=== PATIENT | male | born 1955 | race Caucasian/White ===

== ENCOUNTER 2023-11-09 06:00 | Day surgery (SDC) | payer OTHER, SELFPAY ==
[2023-11-03 07:36] LABS: % Basophils 0.7 % (0-2); % Eosinophils 3.1 % (0-6); % Immature Granulocytes 0.2 % (0-0.5); % Lymphocytes 27.6 % (20.5-51.1); % Monocytes 9.4 % (1.7-9.3); Absolute Eosinophils 0.1 10^3/uL (0-0.7); Absolute Lymphocytes 1.2 10^3/uL (1.2-3.4); Absolute Monocytes 0.4 10^3/uL (0.1-0.6); Absolute Neutrophils 2.6 10^3/uL (1.4-6.5); Hematocrit 43.4 % (39.0-52.0); Hemoglobin 14.7 g/dL (13.0-18.0); Mean Corp Hgb Conc. 33.9 g/dL (33.0-37.0); Mean Corpuscular Hgb 30.1 pg (27.0-31.0); Mean Corpuscular Volume 88.8 fL (80.0-94.0); Mean Platelet Volume 9.9 fL (7.4-10.4); Nucleated Red Blood Cells % 0 % (-); Platelet Count 209 10^3/uL (130-400); Red Blood Cell Count 4.89 10^6/uL (4.70-6.10); Red Cell Dist. Width 13.2 % (11.5-14.5); White Blood Cell Count 4.5 10^3/uL (4.8-10.8)
[2023-11-03 07:48] LABS: ALT (SGPT) 27 U/L (0-50); AST (SGOT) 26 U/L (17-59); Albumin 4.2 g/dl (3.5-5.0); Alkaline Phosphatase 47 U/L (38-126); Blood Urea Nitrogen 20 mg/dl (9-20); Calcium 9.1 mg/dl (8.4-10.2); Carbon Dioxide 29 mmol/L (22-30); Chloride 104 mmol/L (98-107); Glucose 121 mg/dl (70-99); Sodium 138 mmol/L (135-145); Total Bilirubin 0.8 mg/dl (0.2-1.3); Total Protein 6.7 g/dl (6.3-8.2); eGFR > 60.00
[2023-11-09] VITALS (17 sets, daily range): BP systolic 111–143; BP diastolic 67–98; BMI 28.8
--- NOTE | 2023-11-09 09:43 | ITS.EPS ---
[employer] - EPS Report
EPS
Procedure Report:
Electrophysiology study:
Mr. Hall is a very pleasant 68 yr old gentleman with h/o recurrent TIA, PVCs and NSVT with fluctuating LVEF presented for electrophysiology (EP) study and if ventricular arrhythmia is inducible then possible ICD placement.
Date of the Procedure:
11/09/2023
Indications: CVA and Non-sustained Ventricular Tachycardia
Pre-Operative Diagnosis: Non-sustained Ventricular Tachycardia
Post-Operative Diagnosis: Non-sustained Ventricular Tachycardia
Procedure Performed: EP study
Performing physician:
Otilia Morrison MD
Anesthesia:
See anesthesia records
Detailed Description of the Procedure:
Written informed consent was obtained from the patient after a full explanation of the risks and benefits of the procedure including the risks of sedation and anesthesia.
The patient was brought to the electrophysiology laboratory in stable condition in fasting state. Continuous electrocardiographic and hemodynamic monitoring was initiated. The initial rhythm was normal sinus.
The procedure site was meticulously prepared with surgical scrub and allowed to dry with no pooling. Sterile draping was applied to cover the procedure site. The image intensifier was draped with sterile bag and positioned over the patient.
After infusion of local anesthetic, vascular access was obtained under ultrasound guidance and sheaths were placed over guide wire as detailed below.
Sheaths:
��������� 7Fr sheath in right femoral vein
��������� 6Fr sheath in right femoral vein
��������� 6Fr sheath in right femoral vein
��������� 6Fr sheath in right femoral vein
Catheters:
��������� 6Fr - Giancarlo Quad-cath at RVa
��������� 6Fr -Giancarlo-cath at HRA
��������� 6Fr �QRD for HIS location
��������� Decapolar Bard catheter - at locations of CS
Baseline intervals (milliseconds):
PP interval (baseline cycle length): 788
P wave duration: 110
FL interval: 118
QRS duration:136
����������� (RBBB and LAFB)
QT interval: 454
P onset to AVJ: 42
AH interval: 98
His duration: 12
HV interval: 44
Q onset to RVa: 0
Sinus Node Function:
Burst pacing was performed from the right atrium to measure the sinus node recovery time (SNRT) and corrected sinus node recovery time (cSNRT). The sinus node functions are within acceptable normal range.
Atrioventricular Rahul Function:
Atrial stimulation with incremental pacing intervals was performed from the high right atrium (HRA) and right ventricular apex (RVa) and antegrade and retrograde atrioventricular (AV) block cycle lengths were determined. The antegrade AV Wenckebach
was noted at 580 msec.
Programmed atrial stimulation was performed with drive train of 600 msec followed by a single atrial extra-stimulus and the AV rahul and the atrial ERPs were determined. The AV rahul ERP was 320 msec and the atrial ERP was <600/240 msec.
There was normal decremental conduction noted through the AV node. The programmed stimuli showed no abrupt AH jump as an evidence of dual pathways or echo beats.
There were frequent PACs and non-sustained atrial tachycardia noted.
Ventricular stimulation showed concentric, midline and decremental retrograde conduction through the AV node and retrograde AV rahul ERP was 600/280 msec with drive train of 600 msec.
There was slow AV conduction noted at baseline that improved with stimulation. The AV rahul functions are deemed within normal range.
Ventricular Function:
Single ventricular extrastimuli were delivered following drive train of 600 msec and 400 msec the ventricular ERP was determined 220 msec. The ventricular electrical functions are within acceptable range.
Arrhythmia Induction:
Programmed stimulation including single, double and triple extrastimuli were delivered from the RVa. The burst pacing from the RVa was also attempted. The RVa was paced as per MUSTT protocol with no arrhythmia induced at drive train of 600 and then
at 400 msec with S1, S2, S3 and S4.
The catheter was moved to RVOT and the induction was again attempted with drive train of 600 msec and 400 msec with single, double and triple extrastimuli. There was no arrhythmia induced with aggressive induction maneuvers.
No sustained arrhythmia was inducible.
The EP study along with arrhythmia induction was repeated with programmed stimulation and the burst pacing was not able to induce any sustained arrhythmia.
The EP study during the washout phase was again attempted but no arrhythmia was noted.
Procedure End
Following the completion of the EP study, catheters were removed. The sheaths were removed and hemostasis achieved with manual compression.
Estimated Blood loss:
<5 cc
Specimens Removed:
None.
Implants / Devices:
None
Urine output:
None
Packs / Drains/ Tubes:
None
Instrument / Sponge Count Correct:
Yes
Complications of the Procedure:
None
Condition of Patient at Time of Transfer:
Hemodynamically stable with no neurological or vascular compromise.
Summary:
Normal electrophysiology study with Isuprel and no sustained ventricular arrhythmia noted.
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
--- NOTE | 2023-11-09 10:12 | ITS.CL.IMPLP ---
[facility] - Implant Loop
Implant Loop
Procedure Report:
Procedure: Insertion of Loop Recorder.�
Date of the procedure: 11/09/2023
Procedure Physician: Otilia Morrison MD [facility]
Indication: CVA
Description of the procedure:
Patient was brought to the holding area after informed consent was obtained from the patient. The time out was performed immediately before the procedure.
The left parasternal chest area was prepped and draped in sterile fashion with chlorhexidine prep x 3 times. Lidocaine 1% was injected subcutaneously for local anesthesia. The loop recorder was tunneled and then injected into the subcutaneous
tissue. The tunneling tool was removed leaving the loop recorder in place. The dermis was closed with 4-0 Monocryl suture. The skin was closed with steristrips and a pressure Tegaderm dressing was placed. There were no immediate complications.
Post procedure, the device was interrogated and showed good detectable P and R waves.
There were no immediate complications.
Device:
Core Competencet-IQ EL+; Model: [id number]; Serial #:[id number]
R wave amplitude: 0.57mV
Final Programming:
��������������� Tachycardia Detection: 145 bpm for 12 beats
�������������� Bradycardia Detection: 30 bpm for 4 beats, Asystole for 5 seconds
�������������� Atrial fibrillation detection: On
��������������� � Continuous burden: 6 min and daily burden 6 hours, AF alert 2 min
������������������������������� Detection qualifier: On (sudden onset; onset Delta 18%)
������������������������������� Bigeminy Qualifier: On
Conclusion:
Successful insertion of loop recorder.
Recommendation:
Routine post-insertable loop care.
--- NOTE | 2023-11-09 10:23 | PTCARENOTE ---
Johnny Ivan, [facility], at pt bedside speaking to pt and pt's .
[2023-11-09] MEDS: TYLENOL 650 MG PO (10:45)
== END 2023-11-09 14:00 | disposition home or self-care (01) ==
LOC: CATH 06:00
PROVIDERS: ATTENDING PHYSICIAN Internal Medicine Cardiovascular Disease; FAMILY PHYSICIAN Internal Medicine
DX: Z09 Encounter for follow-up examination after completed treatment for conditions other than malignant neoplasm (principal); I47.20 Ventricular tachycardia, unspecified; Z86.73 Personal history of transient ischemic attack (TIA), and cerebral infarction without residual deficits; I10 Essential (primary) hypertension
CPT/HCPCS: 33285; 93620; C1730; C1894; 36415; 76937; 80053; 85025; 86850; 86900; 86901; 93005; 93623; C1764

== ENCOUNTER 2024-01-10 11:50 | Emergency (ER) | payer OTHER, SELFPAY ==
[2024-01-10] VITALS (8 sets, daily range): BP systolic 105–123; BP diastolic 59–97; BMI 27.5
[2024-01-10 12:24] LABS: Hematocrit 46.4 % (39.0-52.0); Mean Corp Hgb Conc. 34.5 g/dL (33.0-37.0); Mean Corpuscular Hgb 29.7 pg (27.0-31.0); Mean Corpuscular Volume 86.2 fL (80.0-94.0); Mean Platelet Volume 10.4 fL (7.4-10.4); Nucleated Red Blood Cells % 0 % (-); Platelet Count 150 10^3/uL (130-400); Red Blood Cell Count 5.38 10^6/uL (4.70-6.10); Red Cell Dist. Width 13.7 % (11.5-14.5); White Blood Cell Count 3.4 10^3/uL (4.8-10.8)
[2024-01-10 12:37] LABS: COVID-19 Antigen Negative (Negative)
[2024-01-10 12:38] LABS: INR 1.11; PT 14.4 Sec (11.4-14.6)
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
[2024-01-10 12:47] LABS: ALT (SGPT) 40 U/L (0-50); AST (SGOT) 36 U/L (17-59); Albumin 4.3 g/dl (3.5-5.0); Alkaline Phosphatase 53 U/L (38-126); Blood Urea Nitrogen 18 mg/dl (9-20); Calcium 8.8 mg/dl (8.4-10.2); Carbon Dioxide 22 mmol/L (22-30); Chloride 101 mmol/L (98-107); Estimated Creatinine Clearance 99 ml/min; Glucose 102 mg/dl (70-99); Potassium 3.3 mmol/L (3.5-5.1); Sodium 134 mmol/L (135-145); Total Bilirubin 0.6 mg/dl (0.2-1.3); Total Protein 6.8 g/dl (6.3-8.2); eGFR > 60.00
[2024-01-10 12:54] LABS: Troponin I < 0.012 ng/ml
[2024-01-10] MEDS: NSS 1000 IV (13:09)
[2024-01-10 13:15] LABS: Absolute Neutrophils -Man Diff 1.5 10^3/uL (1.4-6.5); Band Neutrophils 0 % (0-3)
[2024-01-10 13:16] LABS: Eosinophils 1 % (0-6); Lymphocytes 32 % (20-51); Monocytes 20 % (2-9); Segmented Neutrophils 47 % (42-75)
[2024-01-10 13:18] LABS: Anisocytosis Slight; Normal RBC Morphology No; Ovalocytes Slight; Platelets Checked Yes; Total Cells Counted 100
[2024-01-10] MEDS: SOLU-MEDROL PF 40 MG IV (14:02)
[2024-01-10 15:29] LABS: Troponin I 0.012 ng/ml
== END 2024-01-10 16:27 | disposition home or self-care (01) ==
LOC: EMR 11:50
PROVIDERS: Emergency Medicine; Physician Assistant; EMERGENCY PHYSICIAN Emergency Medicine
DX: R07.89 Other chest pain (principal); I48.0 Paroxysmal atrial fibrillation; I10 Essential (primary) hypertension; I25.10 Atherosclerotic heart disease of native coronary artery without angina pectoris; E78.00 Pure hypercholesterolemia, unspecified; G47.33 Obstructive sleep apnea (adult) (pediatric)
CPT/HCPCS: 99283; 96374; 96361; 71046; 80053; 84484; 85025; 85610; 87502; 87811; 93005

== ENCOUNTER 2024-02-26 07:39 | Inpatient (IN) | payer OTHER, SELFPAY ==
--- NOTE | 2024-02-26 08:16 | W.PN.CD ---
Addendum entered and electronically signed by Otilia Morrison MD 02/27/24 07:52:
Patient is seen and evaluated personally. I agree with the note, plan of care, physical examination and documentation as noted below.
Briefly, 68-year-old gentleman with hypertension, conduction disease, sleep apnea, paroxysmal atrial fibrillation, who has baseline QTc of 430 ms corrected for conduction disease. He was on hydrochlorothiazide which was discontinued with hope to
start Tikosyn. There is no other contraindications. Will start loading him with Tikosyn. Initially proposed doses 5 mg twice a day for
Original Note:
Today's Communication / Plan
-
Obtain baseline EKG and BMP
Dofetilide loading per protocol
Impression / Plan
-
THIS IS THE SUMMARY - SEE SCANNED H&P
BACKGROUND: 68M with prior CVA/TIAs, PVCs, hypertension, bifascicular block, and JAZMINE (uses dental appliance) presents for dofetilide loading. He had an EP study 10/20/2023 which showed normal electrophysiology with Isopril and no sustained
ventricular arrhythmia. He underwent insertion of a loop recorder on that same day. Since then, he is been seen to have periods of atrial fibrillation. He is having recurrent episodes of atrial fibrillation. Heart rates are 170/190 bpm with
associated chronic fatigue, lethargy, and SMALLS.
Paroxysmal atrial fibrillation
-Obtain baseline EKG and BMP
-Dofetilide loading per protocol, this requires intensive monitoring of QTc
-Oral Anticoagulation: Apixaban 5 mg twice daily, he denies missed doses and abnormal bleeding
-[id number]: Score at least 4 (HTN, prior Stroke/TIA, age 65-74)
Bifascicular block
Hypertension, chronic, stable, follow
PVCs
JAZMINE, continue dental appliance
Subjective:
Denies CP, shortness of breath, and dizziness.
Physical Exam
Physical Exam
Constitutional: No acute distress and Comfortable
EENT: Anicteric and Moist mucous membranes
Cardiovascular: Rhythm & rate is regular and Pedal edema is absent
Respiratory: Respiratory effort normal and Lungs clear to auscul.
GI: Soft, Distention absent, Flat, Non tender and Normal bowel sounds
Neuro/Psych: AO x 3
Other: Skin (warm and dry)
Data Reviewed
-
Date of Service: February 26, 2024
Medical Decision Making: Tests Ordered
Labs: Labs Reviewed by me
Old Records: Reviewed
[2024-02-26 09:40] LABS: Blood Urea Nitrogen 19 mg/dl (9-20); Calcium 9.7 mg/dl (8.4-10.2); Carbon Dioxide 28 mmol/L (22-30); Chloride 105 mmol/L (98-107); Glucose 96 mg/dl (70-99); Potassium 4.1 mmol/L (3.5-5.1); Sodium 140 mmol/L (135-145); eGFR > 60.00
[2024-02-26 09:57] VITALS: BP 158/107
--- NOTE | 2024-02-26 10:02 | W.CARD.TIKOS ---
Initiate Tikosyn
-
I verify that the patient has not taken any verapamil (Isoptin/Calan), ketoconazole (Nizoral), cimetidine (Tagamet), trimethoprim (Trimpex), trimethoprim/sulfamethoxazole (Bactrim), megesterol (Megace), prochlorperazine (Compazine),
hydrochlorothiazide (HCTZ), dolutegravir (Tivicay) or any Class I or Class III anti-arrhythmic within the last three days
AND
I verify that the patient has not taken amiodarone within the last THREE months, or that the patient's amiodarone plasma concentration is <0.3 mcg/mL.
Creatinine 0.8 mg/dL (0.7-1.3) 02/26/24 09:18
I have assessed the baseline QTc interval (using QT for heart rate less than 60 bpm) and deemed the patient is appropriate for Dofetilide therapy. I understand that Tikosyn is contraindicated if the QTc is >440msec (500msec in patients with
ventricular conduction abnormalities).
Baseline QTc (in msec): 420
Ordering Physician: Otilia Morrison
[2024-02-26] MEDS: TIKOSYN 500 MCG PO ×2 (10:28→20:59)
[2024-02-26 11:33] VITALS: BP 153/96
--- NOTE | 2024-02-26 12:59 | CM ---
Chart reviewed. Patient is independent of ADLS, lives with his rhoda [address], 3 [address]UPAMA, 0 DME. Plan is for the patient to return home. CM to follow
--- NOTE | 2024-02-26 15:44 | CM ---
Chart reviewed. Patient is independent of ADLS, lives with his in a 2.5 STH, 3 ANUPAMA, 0 DME. Plan is for the patient to return home. CM to follow
--- NOTE | 2024-02-26 15:46 | CM ---
Pricing on Dofetilide through the patient's [facility] is $5 a month retail, $ 10 a month 90 day mail order. I called patients [facility] and they do not have Dofetilide 500 mcq in stock. They can get next day. CM to follow dosage.
[2024-02-26 16:22] VITALS: BP 144/98
[2024-02-26 18:36] VITALS: BP 144/95
[2024-02-26 20:58] VITALS: BP 144/92
[2024-02-26] MEDS: ELIQUIS 5 MG PO (21:00)
[2024-02-26 23:03] VITALS: BP 136/94
[2024-02-27 04:46] VITALS: BP 138/85
--- NOTE | 2024-02-27 06:08 | PTCARENOTE ---
Patient received 2nd dose of Tikosyn. EKG obtained 2hrs post, and QTc showed a result of 502. Tele remains SR-Sinus alvin w/ RBBB and occasional PACs. Dr. Keller made aware about QTc level. This RN will pass along to day shift RN. Pt denies any
chest pain or chest discomfort. Patient had a brief run of tachy w/ HR in the 120s. Upon assessment pt states 'It felt like a poke' and pointed to his middle left back. Episode was brief, and pt back to baseline. Aware of POC, call elmore within
reach.
[2024-02-27 07:51] VITALS: BP 137/82
[2024-02-27] MEDS: COLACE 100 MG PO (08:40)
[2024-02-27] MEDS: FEOSOL 325 MG PO (08:41)
[2024-02-27] MEDS: TIKOSYN 250 MCG PO ×2 (08:41→20:05)
[2024-02-27] MEDS: ELIQUIS 5 MG PO ×2 (08:41→20:05)
[2024-02-27] MEDS: LIPITOR 10 MG PO (08:42)
[2024-02-27] MEDS: ZESTRIL 40 MG PO (08:42)
--- NOTE | 2024-02-27 11:00 | PTCARENOTE ---
Pt's QTc 2 hrs post Tikosyn dose is 561, Dr Morrison notified.
[2024-02-27 11:36] LABS: Blood Urea Nitrogen 20 mg/dl (9-20); Calcium 9.8 mg/dl (8.4-10.2); Carbon Dioxide 28 mmol/L (22-30); Chloride 104 mmol/L (98-107); Glucose 90 mg/dl (70-99); Potassium 4.2 mmol/L (3.5-5.1); Sodium 139 mmol/L (135-145); eGFR > 60.00
[2024-02-27 12:34] VITALS: BP 153/94
--- NOTE | 2024-02-27 14:37 | W.PN.CD ---
Today's Communication / Plan
-
- Continue loading Tikosyn
Impression / Plan
-
THIS IS THE SUMMARY - SEE SCANNED H&P
BACKGROUND: 68M with prior CVA/TIAs, PVCs, hypertension, bifascicular block, and JAZMINE (uses dental appliance) presents for dofetilide loading. He had an EP study 10/20/2023 which showed normal electrophysiology with Isopril and no sustained
ventricular arrhythmia. He underwent insertion of a loop recorder on that same day. Since then, he is been seen to have periods of atrial fibrillation. He is having recurrent episodes of atrial fibrillation. Heart rates are 170/190 bpm with
associated chronic fatigue, lethargy, and SMALLS.
Paroxysmal atrial fibrillation
-Obtain baseline EKG and BMP
-Overnight episode of AF noted.
-Dofetilide loading per protocol, this requires intensive monitoring of QTc
- QTc was prolonged after first dose and the dose was reduced to 250 mcg q12h.
- QTc was long this Am after the tikosyn dose but over the duration of the day, his QTc has imporved on the telemetry.
- Continue loading 250 mcg dose tonight.
- EKG in AM prior to the AM dose.
-Oral Anticoagulation: Apixaban 5 mg twice daily, he denies missed doses and abnormal bleeding
-[id number]: Score at least 4 (HTN, prior Stroke/TIA, age 65-74)
Bifascicular block
Hypertension, chronic, stable, follow
PVCs
JAZMINE, continue dental appliance
Subjective:
Denies CP, shortness of breath, and dizziness.
Physical Exam
Vital Signs/Labs
Vital Signs
Temp Pulse Resp BP Pulse Ox
98.9 F 68 18 137/82 96
02/27/24 12:35 02/27/24 09:00 02/27/24 12:35 02/27/24 07:51 02/27/24 12:35
02/26/24 02/27/24 02/28/24
06:59 06:59 06:59
Actual Weight 102.1 kg
02/27/24 10:28
Magnesium 2.0 mg/dl (1.6-2.3) 02/27/24 10:28
Physical Exam
Constitutional: No acute distress and Comfortable
EENT: Anicteric and Moist mucous membranes
Cardiovascular: Rhythm & rate is regular, Pedal edema is absent and JVD pressure is normal
Respiratory: Respiratory effort normal and Lungs clear to auscul.
Neuro/Psych: Alert, Oriented, AO x 3 and Motor deficits absent
Data Reviewed
-
Date of Service: February 27, 2024
Medical Decision Making: Reviewed Test Results and Test Interpretation
EKG: Tracing Personally Visualized and interpreted
Echo: Report Reviewed by me
Labs: Labs Reviewed by me
Old Records: Reviewed
[2024-02-27 15:49] VITALS: BP 154/94
[2024-02-27 20:04] VITALS: BP 141/87
[2024-02-27 22:12] VITALS: BP 138/83
--- NOTE | 2024-02-27 22:13 | PTCARENOTE ---
Pt rec'd at change of shift awake,alert ambulating in brothers. denies chest discomfort or sob. Pt requested ecg prior to fourth dose of Tikosyn. pt stated he discussed this with Dr Banuelos this afternoon. ecg pre showed QTc 458. 2 hrs post fourth dose
showed QTc of 456. both show sinus alvin rhythm.
[2024-02-28] VITALS (7 sets, daily range): BP systolic 127–145; BP diastolic 73–81
--- NOTE | 2024-02-28 04:08 | DOWNTIME ---
There was a [employer] Client Room Service Runner Downtime on 02/28/2024 from 0100 to 02/28/2024 at 0337. Downtime documentation of patient's care, including medication administrations, has been reconciled in the electronic record per guidelines. Refer to the
patient's paper chart under the miscellaneous tab to see printed paper medication records and downtime forms.
--- NOTE | 2024-02-28 07:52 | W.PN.CD ---
Today's Communication / Plan
-
- With frequent PVCs noted and the fluctuating QTc, will keep him till tomorrow.
- Anticipating discharge tomorrow
Impression / Plan
-
BACKGROUND: 68M with prior CVA/TIAs, PVCs, hypertension, bifascicular block, and JAZMINE (uses dental appliance) presents for dofetilide loading. He had an EP study 10/20/2023 which showed normal electrophysiology with Isopril and no sustained
ventricular arrhythmia. He underwent insertion of a loop recorder on that same day. Since then, he is been seen to have periods of atrial fibrillation. He is having recurrent episodes of atrial fibrillation. Heart rates are 170/190 bpm with
associated chronic fatigue, lethargy, and SMALLS.
Paroxysmal atrial fibrillation
-Obtain baseline EKG and BMP
-Overnight episode of AF noted.
-Dofetilide loading per protocol, this requires intensive monitoring of QTc
- QTc was prolonged after first dose and the dose was reduced to 250 mcg q12h.
- QTc has improved on the telemetry.
- Continue loading 250 mcg dose tonight.
-Oral Anticoagulation: Apixaban 5 mg twice daily, he denies missed doses and abnormal bleeding
-[id number]: Score at least 4 (HTN, prior Stroke/TIA, age 65-74)
Bifascicular block
Hypertension, chronic, stable, follow
PVCs
JAZMINE, continue dental appliance
Subjective:
Denies CP, shortness of breath, and dizziness.
Physical Exam
Vital Signs/Labs
Vital Signs
Temp Pulse Resp BP Pulse Ox
98.1 F 62 18 127/80 96
02/28/24 07:16 02/28/24 07:16 02/28/24 07:16 02/28/24 05:43 02/28/24 07:16
02/27/24 02/28/24 02/29/24
06:59 06:59 06:59
Actual Weight 102.1 kg
02/27/24 10:28
Magnesium 2.0 mg/dl (1.6-2.3) 02/27/24 10:28
Physical Exam
Constitutional: No acute distress and Comfortable
EENT: Anicteric and Moist mucous membranes
Cardiovascular: Rhythm & rate is regular, Pedal edema is absent and JVD pressure is normal
Respiratory: Respiratory effort normal and Lungs clear to auscul.
GI: Soft and Distention absent
Neuro/Psych: Alert, Oriented and AO x 3
Data Reviewed
-
Date of Service: February 28, 2024
Medical Decision Making: Reviewed Test Results, Independent Historian Assessment, Test Interpretation and Review of Case with other Provider
EKG: Tracing Personally Visualized and interpreted
Labs: Labs Reviewed by me
Old Records: Reviewed
[2024-02-28] MEDS: FEOSOL 325 MG PO (07:58)
[2024-02-28] MEDS: COLACE 100 MG PO (07:58)
[2024-02-28] MEDS: TIKOSYN 250 MCG PO ×2 (07:58→19:53)
[2024-02-28] MEDS: ELIQUIS 5 MG PO ×2 (07:59→19:53)
[2024-02-28] MEDS: LIPITOR 10 MG PO (07:59)
[2024-02-28] MEDS: ZESTRIL 40 MG PO (08:00)
--- NOTE | 2024-02-28 11:05 | PTCARENOTE ---
Received patient this AM, AAOx4. Monitor shows NSR with 1st degree AV block and BBC. VSS.
--- NOTE | 2024-02-28 22:54 | PTCARENOTE ---
Pt recevied start of shift, HR SR/SB w/ BBB. 6th dose of tikosyn administered - QTc 465.
[2024-02-29 04:22] VITALS: BP 122/77
[2024-02-29 07:14] VITALS: BP 129/78
[2024-02-29] MEDS: TIKOSYN 250 MCG PO (08:18)
[2024-02-29] MEDS: ZESTRIL 40 MG PO (08:19)
[2024-02-29] MEDS: FEOSOL 325 MG PO (08:19)
[2024-02-29] MEDS: ELIQUIS 5 MG PO (08:19)
[2024-02-29] MEDS: COLACE 100 MG PO (08:19)
[2024-02-29] MEDS: LIPITOR 10 MG PO (08:20)
--- NOTE | 2024-02-29 09:29 | W.DS.TRANS ---
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
-
Discharge Instructions:
Discharge Diagnosis/Procedures atrial fibrillation, dofetilide initiation
Diet Low Cholesterol,Low Sodium
Activity As tolerated
Driving Restrictions As prior to admission
Bathing Restrictions None
Instructions:
Stand-Alone Forms:
Changes to Home Medications: Yes
Discharge Medications:
DC Medications w/original date entered in [facility]
simvastatin 20 mg tablet 20 mg PO DAILY High cholesterol 07/17/19
rizatriptan 10 mg disintegrating tablet 10 mg PO DAILYPRN PRN MIRGRAINES 09/16/23
docusate sodium 100 mg capsule (Stool Softener) 100 mg PO DAILY Constipation #0 caps 09/17/23
lisinopril 40 mg tablet 40 mg PO DAILY Blood pressure #0 tabs 09/17/23
ferrous sulfate 325 mg (65 mg iron) tablet 325 mg PO DAILY Supplement 11/09/23
apixaban 5 mg tablet (Eliquis) 5 mg PO BID Blood Clot Prevention/Tx 02/26/24
dofetilide 250 mcg capsule 250 mcg PO Q12H #60 caps 02/29/24
Home Medication Changes
Dofetilide added
Pending Results: No
[2024-02-29 11:20] VITALS: BP 142/79
[2024-02-29 11:21] VITALS: BP 142/79
--- NOTE | 2024-02-29 11:33 | PTCARENOTE ---
Pt discharged w/ 3 day supply of Tikosyn.
--- NOTE | 2024-02-29 13:25 | W.PN.CD ---
Today's Communication / Plan
-
- QTC is acceptable
- OK for discharge with Tikosyn 250 mcg BID
Impression / Plan
-
BACKGROUND: 68M with prior CVA/TIAs, PVCs, hypertension, bifascicular block, and JAZMINE (uses dental appliance) presents for dofetilide loading. He had an EP study 10/20/2023 which showed normal electrophysiology with Isopril and no sustained
ventricular arrhythmia. He underwent insertion of a loop recorder on that same day. Since then, he is been seen to have periods of atrial fibrillation. He is having recurrent episodes of atrial fibrillation. Heart rates are 170/190 bpm with
associated chronic fatigue, lethargy, and SMALLS.
Paroxysmal atrial fibrillation
-Obtain baseline EKG and BMP
-Overnight episode of AF noted.
-Dofetilide loading per protocol, this requires intensive monitoring of QTc
- QTc was prolonged after first dose and the dose was reduced to 250 mcg q12h.
- QTc has improved on the telemetry.
- s/p Tikosyn 250 mcg BID - loaded.
-Oral Anticoagulation: Apixaban 5 mg twice daily, he denies missed doses and abnormal bleeding
-[id number]: Score at least 4 (HTN, prior Stroke/TIA, age 65-74)
Bifascicular block
Hypertension, chronic, stable, follow
PVCs
JAZMINE, continue dental appliance
Subjective:
Denies CP, shortness of breath, and dizziness.
Physical Exam
Vital Signs/Labs
Vital Signs
Temp Pulse Resp BP Pulse Ox
98.1 F 60 20 142/79 95
02/29/24 11:20 02/29/24 11:20 02/29/24 11:20 02/29/24 11:21 02/29/24 11:20
02/27/24 10:28
Magnesium 2.0 mg/dl (1.6-2.3) 06/18/24 10:28
Physical Exam
Constitutional: No acute distress and Comfortable
EENT: Anicteric and Moist mucous membranes
Cardiovascular: Rhythm & rate is regular, Pedal edema is absent and JVD pressure is normal
Respiratory: Respiratory effort normal, Lungs clear to auscul. and Crackles Absent
GI: Soft, Non tender and Normal bowel sounds
Neuro/Psych: Alert and AO x 3
Data Reviewed
-
Date of Service: February 29, 2024
Medical Decision Making: Reviewed Test Results, Independent Historian Assessment and Test Interpretation
EKG: Tracing Personally Visualized and interpreted
Echo: Report Reviewed by me
Labs: Labs Reviewed by me
Old Records: Reviewed
== END 2024-02-29 11:36 | disposition home or self-care (01) | DRG 310 ==
LOC: IVU 07:39
PROVIDERS: Nurse Practitioner Gerontology; ADMITTING PHYSICIAN Internal Medicine Cardiovascular Disease
DX: I48.0 Paroxysmal atrial fibrillation (principal); I45.2 Bifascicular block; I49.3 Ventricular premature depolarization; I10 Essential (primary) hypertension; E78.5 Hyperlipidemia, unspecified; G47.33 Obstructive sleep apnea (adult) (pediatric); Z79.01 Long term (current) use of anticoagulants; Z86.16 Personal history of COVID-19; Z82.49 Family history of ischemic heart disease and other diseases of the circulatory system; Z88.8 Allergy status to other drugs, medicaments and biological substances; Z86.73 Personal history of transient ischemic attack (TIA), and cerebral infarction without residual deficits; Z95.818 Presence of other cardiac implants and grafts; Z79.899 Other long term (current) drug therapy
CPT/HCPCS: 80048; 83735; 93005

== ENCOUNTER → 2024-03-15 09:16 | Outpatient (REF) | payer OTHER, SELFPAY | LOC: RCS 09:16 | PROVIDERS: ATTENDING PHYSICIAN Nurse Practitioner Gerontology | DX: R00.2 Palpitations (principal) | CPT/HCPCS: 93225; 93226 ==

== ENCOUNTER → 2024-04-12 07:20 | Outpatient (REF) | payer OTHER, SELFPAY | LOC: HWRCS 07:20 | PROVIDERS: ATTENDING PHYSICIAN Internal Medicine Cardiovascular Disease; FAMILY PHYSICIAN Internal Medicine | DX: R00.1 Bradycardia, unspecified (principal) | CPT/HCPCS: 93306 ==

== ENCOUNTER 2024-05-02 07:54 | Day surgery (SDC) | payer OTHER, SELFPAY ==
[2024-05-02] VITALS (25 sets, daily range): BP systolic 116–153; BP diastolic 78–107; BMI 28.4
--- NOTE | 2024-05-02 09:08 | PTCARENOTE ---
Pt's blood pressure is 147/102 on left arm and 153/[address] Partida made aware of pt's blood pressure. No treatment ordered at this time. Will continue to monitor.
--- NOTE | 2024-05-02 12:44 | ITS.CL.PACE ---
Assistant Chief Engineer - Pacemaker Implant
Pacemaker Implant
Procedure Report:
Conduction system pacing Permanent Pacemaker Placement:
Mr. Hall is a 68 years old man with severe bradycardia and pauses with PAF and tachybrady syndrome is recommended a dual chamber PPM placement.
Indications:
Tachy alvin syndrome with sinus pauses.
Date of the Procedure:
05/02/24
Pre-Operative Diagnosis: Tachy alvin syndrome with sinus pauses.
Post-Operative Diagnosis: Tachy alvin syndrome with sinus pauses.
Procedure Performed: Conduction system pacing permanent pacemaker
Performing Physician:
Otilia Morrison MD
Anesthesia:
See anesthesia report.
Detailed Description of the Procedure:
The patient was identified using hospital identification and informed consent obtained for the procedure. The risks were explained to the patient and the family including, but not limited to: Bleeding, infection, arrhythmia, stroke,
vascular/cardiac/lung puncture, surgery, pacemaker dependency/device malfunction. All questions were answered.
A surgical pause was performed in accordance with hospital regulations. Anesthesia service provided sedation as reported separately. Antibiotics administered IV for risk of bacterial colonization. After obtaining informed and written consent, the
patient was brought to the electrophysiology laboratory.
The initial rhythm was sinus with sinus rhythm.
The procedure site was meticulously prepared with surgical scrub and allowed to dry with no pooling. Sterile draping was applied to cover the procedure site. The image intensifier was draped with sterile bag and positioned over the patient.
A surgical pause and time out was performed immediately prior to the procedure with review of her medical history, recent labs, allergies and medications with site of procedure identified and consent noted in the chart. Antibiotics pre operatively
given. All team members concurred.
The left infraclavicular region was prepped and draped in the usual sterile fashion. Local anesthesia was administered subcutaneously using 1% lidocaine / Bupivacaine. The left cephalic vein cutdown was performed with an incision at the
delto-pectoral groove, and vascular sheath was introduced for lead access.
A subcutaneous pocket was created with blunt dissection and use of electrocautery. Hemostasis was excellent.
The guide wire was advanced to the RA and was advanced to the RV. The preformed curved long hemostatic peel away HIS sheath was advanced into the RV cavity. A left bundle pacing wire was advanced into the sheath to the tip with ventricular signals
noted with unipolar manner.
The HIS location was identified under guidance of the fluoroscopy and the pacing wire signals. The sheath with the pacing lead was moved deeper into the RV cavity on the septum at a more inferior and distal to the HIS signals.
Once adequate signals were noted on the electrograms of the pacing lead in the sheath with W pattern signals on the RV septum, the lead was advanced and clockwise turns were done under fluoroscopic guidance. The septum was engaged and the lead was
paced intermittently after every 2-3 turns. The ventricular capture was monitored throughout and the captures gradually changed from RV pacing to non-selective pacing to LBB pacing with R wave on V1 morphology. �
The long guiding sheath was slit and removed from the RV without change in lead position, impedance, sensing, or capture. The lead was sutured to the underlying pectoralis fascia with 0-silk stitches.
Then the attention was given to atrial lead. Atrial active lead was placed in the RA and into the RAA. There were excellent impedance and thresholds.
The leads were attached to the pulse generator in standard configuration with acceptable sensing and threshold parameters. The pocket was irrigated with antibiotic solution; the pocket was inspected with no active bleeding noted. The device and the
leads were placed in the pocket.
Deep subcutaneous tissues were closed with three layers of 2-0 V loc sutures; and the dermis was reopposed using a running 4-0 VLoc subcuticular suture.
Sponge counts / sharp counts were appropriate.
Extraction of Loop Recorder.
The left parasternal chest area was prepped and draped in sterile fashion with chlorahexidine prep x 3 times. Lidocaine 1% was injected subcutaneously for local anesthesia. The loop recorder was palpated and the location was identified. An incision
was made at the previoous insertion location. The blunt dissection was done to identify the location of the ILR. The capsule was cut and the ILR was pulled out of the capsule. The dermis was closed with 4-0 Monocryl sutures and steristrips and a
pressure Tegaderm dressing was placed.
There were no immediate complications.
Procedure End:
The procedure was tolerated well. Aquacel bandaged was applied.
Estimated Blood loss:
5 cc
Specimens Removed:
No cultures and no specimens were obtained. No intraoperative pathology was identified.
Urine output:
None
Packs / Drains/ Tubes:
None
Instrument / Sponge Count Correct:
Yes
Flouro time:
0.8min / 2.6mGy
Complications of the Procedure:
None
Condition of Patient at Time of Transfer:
Hemodynamically stable with no neurological or vascular compromise.
Device information:�
Generator: [employer]; Model: W1DR01; Serial # [id number]�
����������� RA pacing lead: Medtronic; Model: 5076-52; Serial # [id number]
����������� Measured data on the RV lead was sensing of 2 mV of flutter waves, impedance of 570 ohms and threshold of 1.0 V at 0.4ms. �
����������� RV LBB pacing lead: Medtronic; Model: 3830-69; Serial # [id number]
����������� Measured data on the RV lead was sensing of 8mV, impedance of 920 ohms and threshold of 0.8 V at 0.4ms�
Explanted ILR:
DAQRI Assert-IQ EL+; Model: DM 5500; Serial #:[id number] (implanted on 11/09/23)
PROGRAMMING PARAMETERS:�
Alvin parameter settings were AAIR <=>DDDR 70-130 �
����������� Paced AV interval: 180ms
����������� Sensed AV interval: 150 ms.
����������� Rate Adaptive A-V Interval: On
Summary:
Successful implantation of MRI compatible dual chamber conduction system pacing permanent Medtronic pacemaker.
Results/Recommendations:
-Please follow up CXR�
1. Please provide patient with adequate pain control�
Instructions to be given to patient:�
- Please follow up with [facility] at [address] [place] [address] ([phone]) to get your wound checked in 2 weeks of your discharge. Then follow with
- Do not wet incision site until after it is evaluated at cardiology clinic. No baths or showers until then. Sponge baths / showers are OK but dab dry the dressing after it is wet.�
- Allow 'steri strips' to fall off on their own�
- Do not lift left elbow above shoulder, particularly with sudden jerking movements, for 1 month�
- Do not lift anything weighing more than 5 pounds with the left arm for 1 month�
- If you notice any fevers, shortness of breath, lightheadedness, chest pain, or worsening swelling in the wound site, please contact the arrhythmia clinic, contact your applied psychology teacher, or present to the hospital for evaluation.�
Otilia Morrison MD
Electrophysiology
--- NOTE | 2024-05-02 13:18 | PTCARENOTE ---
Pt transferred to xray via [facility] with engine monitor and RN.
--- NOTE | 2024-05-02 13:29 | PTCARENOTE ---
Pt returned from xray via stretcher with classroom monitor and RN.
--- NOTE | 2024-05-02 13:48 | PTCARENOTE ---
received report from primary RN Elli for break. transported patient to xray on monitor. returned to [facility] recovery bay 10. vitals stable. site clean dry intact. pt offers no c/o and call elmore at side. maintaining npo until xray results. continue
to monitor. present at bedside.
[2024-05-02] MEDS: TYLENOL 650 MG PO ×2 (14:32→18:15)
--- NOTE | 2024-05-02 14:58 | PTCARENOTE ---
Pt c/o headache 12/19. Pt received tylenol 650mg PO at 1432. Pt's diastolic BP is running in the 90's. Pt's is at this bedside. Dominique Clark NP made aware of pt's headache (treated with tylenol) and BP. No treatment ordered at this time. Will
continue to monitor.
--- NOTE | 2024-05-02 15:20 | PTCARENOTE ---
Umair Martino at pt bedside speaking to pt and pt's .
--- NOTE | 2024-05-02 15:58 | W.PN.UPDATE ---
Addendum entered and electronically signed by CINDA Lenz 05/02/24 17:00:
pt having severe occipital H/A 5/10 worsening even after 650mg Tylenol PO over an hour ago. He has history of CVA/TIA and h/a is one of his symptoms. He has no other neurologic deficits. He presented in SR and is SR post PPM will still hold Eliquis
tonight. I s/w Dr. Morrison, we will give tramadol 50mg now and admit for overnight observation. Continue to monitor closely.
Original Note:
Update Note
Progress Note Update
68 yo WM s/p DC PPM (same day). He feels good, site stable, EKG appropriately Apacing, CXR no PTX. He will resume Eliquis monday am and watch site for bleeding/swelling. Activity restrictions reviewed. He has inc check apt in 1 week. He is for d/c
home after 5pm and another dose of IV ancef.
--- NOTE | 2024-05-02 16:10 | PTCARENOTE ---
Pt c/o headache in the back of his head rated 5/10. Pt received tylenol earler today. Pt states he doesn't want any other medication for his headache stating 'I want to wait it out.' Will continue to monitor.
--- NOTE | 2024-05-02 16:37 | PTCARENOTE ---
Dominique Clark COIL CLEANER at pt bedside assessing pt. Pt states he still has a headache rated 5/10 and described aching. Pt continues to decline further pain medication at this time. VSS. Pt's at pt bedside. Will continue to monitor.
--- NOTE | 2024-05-02 16:55 | PTCARENOTE ---
Pt continues to c/o headache in back of head rated 5/10. Pt and pt's just stated pt's previous strokes started with pain at same area. NIH performed with score of 0 ( unable to test left arm due to PPM placement). Pt's diastolic BP fluctuates
as high as 90's to low 100's. Dominique Clark [employer] CONSULTANT made aware and ordered tramadol now and to admit pt overnight for observation. Will follow orders and continue to monitor.
[2024-05-02] MEDS: ULTRAM 50 MG PO ×2 (17:02→22:34)
[2024-05-02] MEDS: ANCEF 5 IV (17:02)
[2024-05-02] MEDS: TIKOSYN 250 MCG PO (18:15)
--- NOTE | 2024-05-02 19:48 | PTCARENOTE ---
Pt received from recovery area post pacemaker placement in left anterior chest and LINQ explant. Both dressings dry and intact, no sign of bleeding or hematoma. Pt continues to report 5/10 headache which is unchanged, no neuro defict noted. Prior RN
giving report stated NIH score of zero. Telemetry shows atrial paced rhythm.
--- NOTE | 2024-05-02 21:29 | PTCARENOTE ---
Received patient for the night in bed with L upper extremity immobilizer in place. Aquacel dressing CDI, no evidence of hematoma. A paced on the monitor. Patient reports 5/10 headache continued after pain medication. Patient notes that this is a
similar feeling to his previous stroke in 2009. Neuro check within normal limits. Call elmore within reach.
--- NOTE | 2024-05-02 23:15 | PTCARENOTE ---
PRN tramadol provided per NOV. Pt still describing a 5/10 HUI across the back of his head not worse or better with medications. Neuro check still WNL. Pupils 2 b/l with equal reactions to light. pt verbalized understanding to make RN aware of any
noted changes.
[2024-05-03 02:39] VITALS: BP 134/86
[2024-05-03] MEDS: ANCEF 5 IV (02:40)
[2024-05-03] MEDS: TYLENOL 650 MG PO ×2 (02:48→10:18)
[2024-05-03 02:59] VITALS: BMI 28.4
[2024-05-03 03:30] LABS: Hematocrit 43.2 % (39.0-52.0); Hemoglobin 14.6 g/dL (13.0-18.0); Mean Corp Hgb Conc. 33.8 g/dL (33.0-37.0); Mean Corpuscular Hgb 30.2 pg (27.0-31.0); Mean Corpuscular Volume 89.4 fL (80.0-94.0); Mean Platelet Volume 9.6 fL (7.4-10.4); Platelet Count 166 10^3/uL (130-400); Red Blood Cell Count 4.83 10^6/uL (4.70-6.10); Red Cell Dist. Width 13.4 % (11.5-14.5); White Blood Cell Count 8.6 10^3/uL (4.8-10.8)
--- NOTE | 2024-05-03 03:45 | PTCARENOTE ---
HUI moved from whole back of the head to L sided cluster. still rating as a 5/10. L chest wall 3/10 pain meds provided per mar as well as a warm blanket for comfort. Neuro check still wnl.
[2024-05-03 03:54] LABS: Blood Urea Nitrogen 21 mg/dl (9-20); Calcium 9.3 mg/dl (8.4-10.2); Carbon Dioxide 29 mmol/L (22-30); Chloride 103 mmol/L (98-107); Estimated Creatinine Clearance 96 ml/min; Glucose 99 mg/dl (70-99); Potassium 4.1 mmol/L (3.5-5.1); Sodium 141 mmol/L (135-145); eGFR > 60.00
[2024-05-03] MEDS: TIKOSYN 250 MCG PO (05:49)
[2024-05-03 05:50] VITALS: BP 141/89
[2024-05-03] MEDS: ULTRAM 50 MG PO (05:50)
--- NOTE | 2024-05-03 05:54 | PTCARENOTE ---
Ultram provided for HUI remaining on the back of the head clustered to the L side. still rating as a 5/10. Neuro checks still WNL. Pt without other complaints at this time. L chest wall Aquacel and Mid chest wall CDI.
[2024-05-03 07:19] VITALS: BP 132/103
[2024-05-03 07:20] VITALS: BP 129/102
[2024-05-03] MEDS: ZESTRIL 40 MG PO (08:31)
[2024-05-03] MEDS: LIPITOR 10 MG PO (08:31)
[2024-05-03 08:40] VITALS: BMI 28.4
--- NOTE | 2024-05-03 09:00 | PTCARENOTE ---
Assumed care of pt from night RN. Pt received awake and alert, Ox3. VSs, CM shows A-pacing 80's, POX 95% on RA. Left PPM incision CDI with Tegaderm. Immobilizer removed per Cards. Movement limitations reviewed with pt. Tylenol 650 mg given as
per MAR for 6/10 pain at incision site. For D/C this am.
--- NOTE | 2024-05-03 09:34 | CM ---
Reviewed chart. Met with Mr. Hall to review discharge plans. He states prior to admission he resides with his spouse and daughter in a two story home with four steps to enter. He states he has a full flight of steps to get to bedroom/full
bathroom. He staets he has a powder room on the first floor. He states prior to admission he was independent with ambulation and adls. He states he does not have any DME in the home. He states he has a prescription plan and uses [facility].
The discharge plan is to return home with his spouse and daughter when medically stable.
[2024-05-03] MEDS: ELIQUIS 5 MG PO (09:39)
--- NOTE | 2024-05-03 10:41 | W.PN.CARDCBS ---
Addendum entered and electronically signed by Navneet Cassidy MD 05/03/24 11:19:
I saw and examined the patient.
The GOLD LETTERER's note was reviewed and I agree with the note.
Comment: We offered neurology evaluation but pt and declined. EKG/tele/CXR all good. Home today.
Original Note:
Today's Communication / Plan
-
stable for d/c home
instructed that if headache worsens he should be evaluated by Neurology
Impression / Plan
-
PCP: Kirk Matias MD
CDY: Otilia Morrison MD
Impression/Plan:
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
He continues to have h/a despite medications, no other neuro deficits, offered neuro eval but declined at this time.
tele Apaced 70bpm, CXR no PTX
site stable, resume Eliquis this am
inc check 1 week
PAF - continue dofetilide and resume Eliquis
HTN - continue lisinopril
CVA/TIA
HLD continue simvastatin
JAZMINE
PVC's
stable for d/c home today
Progress Note - Cardiopulmonary Supervisor
Subjective
Date of Service: May 03, 2024
no cp, sob, mod inc pain and h/a 12/19
Objective
Labs:
05/03/24 02:55
05/03/24 02:55
Labs
Hgb 14.6 g/dL (13.0-18.0) 05/03/24 02:55
Hct 43.2 % (39.0-52.0) 05/03/24 02:55
Plt Count 166 10^3/uL (130-400) 05/03/24 02:55
Sodium 141 mmol/L (135-145) 05/03/24 02:55
Potassium 4.1 mmol/L (3.5-5.1) 05/03/24 02:55
BUN 21 mg/dl (9-20) H 05/03/24 02:55
Creatinine 0.9 mg/dL (0.7-1.3) 05/03/24 02:55
Glucose 99 mg/dl (70-99) 05/03/24 02:55
Vital Signs and I&O:
Vital Signs
Temp Pulse Resp BP Pulse Ox
98.0 F 92 18 129/102 94
05/03/24 07:24 05/03/24 07:30 05/03/24 07:24 05/03/24 07:20 05/03/24 07:24
Vital Signs
Temp Pulse Resp BP Pulse Ox
98.0 F 92 18 129/102 94
05/03/24 07:24 05/03/24 07:30 05/03/24 07:24 05/03/24 07:20 05/03/24 07:24
Intake & Output
05/01/24 05/02/24 05/03/24 05/04/24
06:59 06:59 06:59 06:59
Intake Total 480 / 480
Balance 480 / 480
Physical Exam
Physical Exam
NAD< AOX3
S1, S2, RRR
cTAB, non labored
SNTND bsx4
L CW Aquacel dressing c/d/i no HT, moderately tender to palpation
--- NOTE | 2024-05-03 11:00 | PTCARENOTE ---
All D/C info reviewed with pt, all questions answered. Pt D/C'd home with family member.
--- NOTE | 2024-05-03 11:48 | W.DS.TRANS ---
DC Summary - Machine Stripper
-
Discharge Instructions:
Discharge Diagnosis/Procedures Pacemaker implant
Diet Low Cholesterol
Driving Restrictions No driving for 1 week
Bathing Restrictions OK to Shower
Instructions: Pacemaker Insertion
Heart Healthy Diet
Sick Sinus Syndrome (DC)
Stand-Alone Forms: DC Inst - Implanted Device
Changes to Home Medications: No
Discharge Medications:
DC Medications w/original date entered in [facility]
simvastatin 20 mg tablet 20 mg PO DAILY High cholesterol 07/17/19
docusate sodium 100 mg capsule (Stool Softener) 100 mg PO DAILY Constipation #0 caps 09/17/23
lisinopril 40 mg tablet 40 mg PO DAILY Blood pressure #0 tabs 09/17/23
apixaban 5 mg tablet (Eliquis) 5 mg PO BID Blood Clot Prevention/Tx 02/26/24
dofetilide 250 mcg capsule 250 mcg PO Q12H #60 caps 02/29/24
ascorbic acid (vitamin C) 1,000 mg tablet (Vitamin C) 1,000 mg PO DAILY 05/02/24
ferrous sulfate 28 mg iron tablet 1 mg PO DAILY 05/02/24
oszvmgndmudy-ilsnqeyj-ekaoxd tablet (Multivitamin 50 Plus tablet) 1 tab PO DAILY 05/02/24
Home Medication Changes
Pending Results: No
== END 2024-05-03 11:00 | disposition home or self-care (01) ==
LOC: CATH 07:54
PROVIDERS: Nurse Practitioner Adult Health; ATTENDING PHYSICIAN Internal Medicine Cardiovascular Disease; FAMILY PHYSICIAN Internal Medicine
DX: I49.5 Sick sinus syndrome (principal); Z79.01 Long term (current) use of anticoagulants; Z79.899 Other long term (current) drug therapy; Z86.73 Personal history of transient ischemic attack (TIA), and cerebral infarction without residual deficits; I10 Essential (primary) hypertension
CPT/HCPCS: 33208; 33286; 71045; 80048; 83735; 85027; 93005; C1785; C1892; C1898

== ENCOUNTER → 2024-11-19 16:30 | Outpatient (REF) | payer OTHER, SELFPAY | LOC: RAD 16:30 | PROVIDERS: ATTENDING PHYSICIAN Psychiatry & Neurology Neurology; FAMILY PHYSICIAN Internal Medicine | DX: Z86.73 Personal history of transient ischemic attack (TIA), and cerebral infarction without residual deficits (principal) | CPT/HCPCS: 70496; 70498; Q9967 ==

== ENCOUNTER → 2024-12-03 14:58 | Outpatient (REF) | payer OTHER, SELFPAY | LOC: HWRAD 14:58 | PROVIDERS: ATTENDING PHYSICIAN Nurse Practitioner Adult Health; FAMILY PHYSICIAN Internal Medicine | DX: E04.1 Nontoxic single thyroid nodule (principal) | CPT/HCPCS: 76536 ==

== ENCOUNTER → 2025-06-18 06:47 | Outpatient (REF) | payer OTHER, SELFPAY | LOC: HWRAD 06:47 | PROVIDERS: ATTENDING PHYSICIAN Internal Medicine | DX: E04.2 Nontoxic multinodular goiter (principal) | CPT/HCPCS: 76536 ==

== ENCOUNTER → 2025-08-05 07:00 | Outpatient (REF) | payer OTHER, SELFPAY ==
--- NOTE | 2025-08-05 10:14 | EEG.RPT ---
Electroencephalogram Report
Recording
Date of EE08/05/25
Type of EEG: Routine
Length of EEG recordin minutes
Done with Video Recording: Yes
Patient Status: Outpatient
Recording Conditions: Awake, Drowsy and Asleep
Hyperventilation Performed: No
Photic Stimulation Performed: Yes
Report
GREATER THAN 1 HOUR EEG REPORT
EEG INTERPRETATION:
Unremarkable EEG for age
CLINICAL CORRELATION:
A normal EEG does not rule out a diagnosis of epilepsy. If clinical suspicion for seizure persists, a prolonged recording may be warranted.
Clinical correlation is advised.
METHODS:
A 21 channel digitized electroencephalogram (EEG) was performed using the 10/20 international system of electrode placement and one-lead of ECG recorded. Video was recorded. Persyst quantitative EEG analysis was performed.
ELECTROENCEPHALOGRAPHER IMPRESSION(S):
Quality of study
Good
Background
There was an unremarkable anterior-posterior voltage gradient of alpha frequency.
With eye opening the background activity changed to a low voltage mixture of frequencies.
There were no significant asymmetries of background activity noted.
Sleep
Drowsiness present
Stage I present
Stage 2 present
Photic Stimulation
No driving
ECG
Normal sinus rhythm
== END ==
LOC: EEG 07:00
PROVIDERS: ATTENDING PHYSICIAN Psychiatry & Neurology Neurology; FAMILY PHYSICIAN Internal Medicine
DX: R41.3 Other amnesia (principal); G40.89 Other seizures
CPT/HCPCS: 95813